=== PATIENT | female | born 1980 | race Caucasian/White ===

== ENCOUNTER 2017-03-01 19:18 | Emergency (ER) | payer OTHER, SELFPAY ==
[2017-03-01] MEDS ORDERED: Lidocaine 1% w/Epinephrine 1:100K 20 ML VIAL ONE (19:42)
[2017-03-01] MEDS ORDERED: Adacel (T-DAP) 0.5 ML VIAL ONE (19:57)
[2017-03-01] MEDS ORDERED: HYDROcodone/Acetaminophen 10/325 mg Tablet ONE (19:57)
== END 2017-03-01 20:45 | disposition home or self-care (01) ==
LOC: NAV ERS 19:18
DX: S50.852A Superficial foreign body of left forearm, initial encounter (principal); E66.9 Obesity, unspecified; F41.9 Anxiety disorder, unspecified; F32.9 Major depressive disorder, single episode, unspecified; F17.210 Nicotine dependence, cigarettes, uncomplicated; Z23 Encounter for immunization; W45.8XXA Other foreign body or object entering through skin, initial encounter
CPT/HCPCS: 90715; J2001

== ENCOUNTER 2017-06-04 12:34 | Emergency (ER) | payer SELFPAY | END 2017-06-04 13:03 | disposition home or self-care (01) | LOC: NAV ERS 12:34 | DX: S03.2XXA Dislocation of tooth, initial encounter (principal); K05.10 Chronic gingivitis, plaque induced; K02.9 Dental caries, unspecified; F41.9 Anxiety disorder, unspecified; F32.9 Major depressive disorder, single episode, unspecified; F17.210 Nicotine dependence, cigarettes, uncomplicated; X58.XXXA Exposure to other specified factors, initial encounter | CPT/HCPCS: 99282 ==

== ENCOUNTER 2017-11-03 07:17 | Emergency (ER) | payer SELFPAY ==
[2017-11-03] MEDS ORDERED: Famotidine/PF 20 mg/2ml Vial ONE (07:40)
[2017-11-03] MEDS ORDERED: Metoclopramide HCl 10 MG/2 ML VIAL ONE (07:40)
[2017-11-03] MEDS ORDERED: Sodium Chloride 0.9% 1,000 ML ONE ×2 (07:40→08:49)
[2017-11-03 08:00] LABS: Pregs Control Bar Appear? YES (CONTROL BAR)
[2017-11-03 08:01] LABS: BHCG - Serum Negative (NEGATIVE)
[2017-11-03 08:12] LABS: ALT (SGPT) 29 U/L (8-55); AST (SGOT) 44 U/L (5-34); Albumin 4.1 g/dL (3.5-5.0); Alkaline Phosphatase 106 U/L (40-150); Anion Gap 16 mmol/L (10-20); BUN (Urea Nitrogen) 4 mg/dL (7.0-18.7); Bilirubin, Total 0.4 mg/dL (0.2-1.2); Calc. Creatinine Clearance 0 mL/min (70-130); Calcium 8.7 mg/dL (7.8-10.44); Carbon Dioxide 19 mmol/L (22-29); Chloride 106 mmol/L (98-107); Estimated GFR-MDRD 85; Globulin 3.2 g/dL (2.4-3.5); Glucose 115 mg/dL (70-105); Potassium 3.6 mmol/L (3.5-5.1); Protein, Total 7.3 g/dL (6.0-8.3); Sodium 137 mmol/L (136-145)
[2017-11-03 08:18] LABS: Hemoglobin 15.2 g/dL (12.0-16.0); Mean Corpuscular HGB CONC 32.8 g/dL (32.0-36.0); Mean Corpuscular Hemoglobin 32.8 pg (27.0-31.0); Mean Platelet Volume 7.3 fL (7.4-10.4); Platelet Count 224 thou/uL (130-400); RBC Distribution Width 11.3 % (11.5-14.5); Red Blood Cell (RBC) Count 4.65 mill/uL (4.20-5.40); White Blood Cell (WBC) Count 9.5 thou/uL (4.8-10.8)
[2017-11-03 08:19] LABS: Anisocytosis SLIGHT = 6-15 cells (100X) (0-5/hpf); Band 5 % (5-11); Lymphocytes 5 % (21-51); MDiff Complete? YES; Macrocytosis SLIGHT = 6-15 cells (100X) (0-5/hpf); Monocytes 3 % (0-10); Neutrophil 87 % (42-75); PLT Morphology Comment Appears Adequate
[2017-11-03] MEDS ORDERED: Acetaminophen 500 MG TAB ONE (08:20)
[2017-11-03] MEDS ORDERED: Ondansetron HCl/PF 4 MG/2 ML Vial ONE (08:20)
[2017-11-03] MEDS ORDERED: diphenhydrAMINE 50 MG/ML VIAL ONE (08:20)
[2017-11-03] MEDS ORDERED: Dexamethasone 20 MG/5 ML VIAL ONE (08:49)
== END 2017-11-03 09:41 | disposition home or self-care (01) ==
LOC: NAV ERS 07:17
DX: R11.2 Nausea with vomiting, unspecified (principal); R19.7 Diarrhea, unspecified; F41.9 Anxiety disorder, unspecified; F32.9 Major depressive disorder, single episode, unspecified; F17.210 Nicotine dependence, cigarettes, uncomplicated
CPT/HCPCS: 80053; 84703; 85025; 96361; 96374; 96375; J1100; J1200; J2405; J2765; J7050; S0028

== ENCOUNTER 2017-12-24 13:06 | Emergency (ER) | payer SELFPAY ==
--- NOTE | 2017-12-24 13:50 | RAD ---
RIGHT ANKLE 3 VIEWS: HISTORY: Injury, right ankle pain. FINDINGS/IMPRESSION: The ankle mortise is maintained. No acute fracture or dislocation is identified. POS: [facility]
[2017-12-24] MEDS ORDERED: Naproxen 500 MG TAB ONE (13:55)
== END 2017-12-24 13:55 | disposition home or self-care (01) ==
LOC: NAV ERS 13:06
DX: S93.401A Sprain of unspecified ligament of right ankle, initial encounter (principal); M25.561 Pain in right knee; I10 Essential (primary) hypertension; F41.9 Anxiety disorder, unspecified; F32.9 Major depressive disorder, single episode, unspecified; F17.210 Nicotine dependence, cigarettes, uncomplicated; X50.1XXA Overexertion from prolonged static or awkward postures, initial encounter

== ENCOUNTER 2019-06-18 11:37 | Emergency (ER) | payer OTHER ==
--- NOTE | 2019-06-18 12:27 | RAD ---
RIGHT KNEE FOUR VIEWS: HISTORY: Right knee pain. Injury. FINDINGS: No acute fracture or dislocation is identified. Minimal degenerative changes are seen in the medial tibiofemoral compartment. POS: [facility]
== END 2019-06-18 12:35 | disposition home or self-care (01) ==
LOC: NAV ERS 11:37
DX: M25.561 Pain in right knee (principal); I10 Essential (primary) hypertension; F41.9 Anxiety disorder, unspecified; F32.9 Major depressive disorder, single episode, unspecified; F17.210 Nicotine dependence, cigarettes, uncomplicated